=== PATIENT | female | born 1995 | race Caucasian/White ===

== ENCOUNTER 2022-05-31 18:07 | Emergency (ER) | payer MEDICAID, SELFPAY ==
[2022-05-31 18:09] VITALS: BP 126/83; PULSE 117; RESP 18; TEMP 37.9; O2SAT 95; BMI 37.1
--- NOTE | 2022-05-31 18:23 | EX.ED.DYSGE1 ---
HPI History of Present Illness Chief Complaint: General Illness Informant: patient Onset/Context/Timing Onset: Days (5 days) Context: Gradual Onset Timing: Waxes and wanes Current Severity: Moderate Maximum Severity: Moderate Narrative Narrative: Patient post with 5-day history of chills, nausea, body aches. She reports today her temperature has been around 101. She has not taken Tylenol or ibuprofen. She has not actually vomited or had diarrhea. She has not taken a COVID test. She did not get the influenza vaccine. PFSH PFSH Medical History no medical history no medical history Home Medications ondansetron 4 mg disintegrating tablet 4 mg PO Q8H PRN nausea and vomiting #10 tabs 05/31/22 [Rx Last Taken Unknown] Allergy/AdvReac Type Severity Reaction Status Date / Time No Known Allergies Allergy Verified 05/31/22 18:08 Social History Smoking Status: Never smoker ROS ROS ED Constitutional Constitutional ED: Reports chills and fever(s) Eyes Eyes: Denies change in vision or discharge from eye(s) ENT ENT ED: Denies discharge from eye(s), rhinorrhea or sore throat Cardiovascular Cardiovascular: Denies chest pain or palpitations Respiratory/Chest Respiratory/Chest: Reports cough; Denies dyspnea Gastrointestinal Gastrointestinal: Reports nausea; Denies abdominal pain, diarrhea or vomiting Genitourinary Genitourinary ED: Denies dysuria Musculoskeletal Musculoskeletal: Reports myalgias; Denies back pain or extremity pain Integumentary Denies Abrasions or rash Neurologic Neurologic: Reports headache(s); Denies weakness Allergic/Immunologic Allergic/Immunologic ED: Denies lip swelling or urticaria EXAM Physical Exam Const Vital Signs: 05/31/22 18:09 05/31/22 18:35 05/31/22 18:36 Temperature 100.2 F H 100.2 F H Temperature Source Temporal Temporal Pulse Rate 117 H 92 92 Respiratory Rate 18 18 18 Blood Pressure 126/83 H 122/83 H 122/83 H Blood Pressure Mean 97 96 96 Pulse Ox 95 93 93 Oxygen Delivery Method Room Air Room Air Room Air Positive well nourished and well developed General Appearance ED: well developed HEENT Reports normocephalic and head/scalp atraumatic Eyes PERRL and EOMs intact bilaterally Neck supple Chest Wall inspection of chest normal and palpation of chest normal Resp normal respiratory effort and clear to auscultation bilaterally Cardio regular rate and regular rhythm GI normal to inspection, nondistended, normoactive bowel sounds and non-tender Palpation: soft Extremity normal to inspection Neuro oriented x3 and no sensory deficits noted Sensorium / Orientation: alert Motor Exam: strength 5/5 throughout Psych mental status grossly normal Skin no rashes or lesions noted MDM MDM MDM Narrative Medical decision making narrative: Patient given IV fluids along with Toradol and Zofran. Lab work, chest x-ray, COVID/influenza swab ordered. Lab Data Attestation: I reviewed the patient's lab results. Labs: Laboratory Results - last 24 hr 05/31/22 05/31/22 18:30 18:30 WBC 7.6 RBC 5.07 Hgb 14.9 Hct 44.9 MCV 88.6 MCH 29.4 MCHC 33.2 RDW Std Deviation 41.1 RDW Coeff of Kraig 12.7 Plt Count 251 MPV 10.8 Immature Gran % (Auto) 0.400 Neut % (Auto) 67.0 Lymph % (Auto) 18.9 L [place] % (Auto) 12.8 H Eos % (Auto) 0.5 Baso % (Auto) 0.4 Absolute Neuts (auto) 5.1 Absolute Lymphs (auto) 1.44 Nucleated RBC % 0 Sodium 136 Potassium 3.6 Chloride 101 Carbon Dioxide 27.0 Anion Gap 8 BUN 14 Creatinine 1.01 Estim Creat Clear Calc 74.62 Est GFR (MDRD) Af Amer 84 Est GFR (MDRD) Non-Af 69 BUN/Creatinine Ratio 13.9 Glucose 129 H Calcium 8.8 Radiography Chest X-Ray - ED: 1 View, Read by ED Physician, Normal, Heart, Lungs and Mediastinum Diagnostic Testing: Clinical Impression(s) from Imaging Studies Chest X-Ray 05/31/22 18:44 IMPRESSION: No acute findings in the chest. Electronically Signed: Maxx Galvez MD at 19:05 EST , Treatment and Re-Evaluation Narrative: Repeat evaluation patient resting comfortably. Nausea is improved. CBC and chemistry studies unremarkable. Chest x-ray per my interpretation reveals no focal infiltrate. Radiology interpretation is reviewed. Swabs for COVID and influenza returned negative. Test results are discussed with her. I believe she has another virus causing similar symptoms. We discussed supportive care. She will be given a prescription for Zofran. Return instructions given. Discharge Plan Triage Chief Complaint: General Illness ED Provider: Rosy Darby Dx/Rx/DC Orders Clinical Impression: Viral syndrome Instructions: ED Viral Syndrome (Adult) Prescriptions: New ondansetron 4 mg tablet,disintegrating 4 mg PO Q8H PRN (Reason: nausea and vomiting) Qty: 10 0RF Primary Care Provider: Andrew Carey Referrals: Andrew Carey MD [Primary Care Provider] - 1 Week if not improving Disposition Disposition: Home, Self Care
[2022-05-31 18:35] VITALS: BP 122/83; PULSE 92; RESP 18; O2SAT 93
[2022-05-31 18:36] VITALS: BP 122/83; PULSE 92; RESP 18; TEMP 37.9; O2SAT 93
[2022-05-31] MEDS: Ondansetron 4 MG/2 ML Vial IV (18:38)
[2022-05-31] MEDS: 0.9% Normal Saline 1,000 ML 1000 ML IV (18:38)
[2022-05-31] MEDS: Ketorolac 30 MG/ML Syringe IV (18:38)
[2022-05-31 18:43] LABS: Absolute Lymphocyte Count 1.44 X10^3/uL (0.83-4.51); Absolute Neutrophil Count 5.1 X10^3/uL (2.0-7.7); Basophil# 0.03 X10^3/uL; Basophil% 0.4 % (0-1); Eosinophil# 0.04 X10^3/uL; Eosinophils% 0.5 % (0-5); Hematocrit 44.9 % (37-47); Hemoglobin 14.9 g/dL (12.0-15.0); Lymphocyte # 1.44 X10^3/ul (0.83-4.51); Lymphocyte % 18.9 % (19-41); Mean Corp Hgb Conc 33.2 g/dL (32-36); Mean Corpuscular Hgb 29.4 pg (27.0-32.0); Mean Corpuscular Volume 88.6 fL (81-99); Mean Platelet Vol. 10.8 fl (6.2-12.0); Monocyte# 0.97 X10^3/uL; Monocyte% 12.8 % (0-10); NRBC Flagged by Analyzer 0 % (0-5); Neutrophil # 5.09 X10^3/uL (2.7-7.7); Platelet Count 251 K/mm3 (150-450); RBC Distribution Width CV 12.7 % (11.6-14.6); RBC Distribution Width SD 41.1 fl (35.1-43.9); Red Blood Count 5.07 M/mm3 (4.2-5.4); White Blood Count 7.6 K/mm3 (4.4-11.0)
--- NOTE | 2022-05-31 18:44 | RAD_ITS ---
EXAM: XR CHEST, 1 VIEW CLINICAL INDICATION: fever, cough TECHNIQUE: Frontal view of the chest. This report was created using [employer] report generation technology. COMPARISON: None. FINDINGS: LUNGS AND PLEURAL SPACES: Mild subsegmental atelectasis at the lung bases. No pneumothorax. No effusion. HEART: Unremarkable. Cardiac silhouette not enlarged. MEDIASTINUM: Central airways and mediastinal contour are unremarkable. BONES/JOINTS: Unremarkable. SOFT TISSUES: Unremarkable. RAD/Chest 1 View (Portable) IMPRESSION: No acute findings in the chest. Electronically Signed: Maxx Galvez MD at 19:05 EST ,
[2022-05-31 18:45] LABS: POSITIVE COUNT NO; POSITIVE DIFFERENTIAL NO; POSITIVE MORPHOLOGY NO
[2022-05-31 18:57] LABS: Anion Gap 8 (5-15); BUN 14 mg/dL (7-18); BUN/Creat Ratio 13.9 RATIO (10-20); Calcium,Total 8.8 mg/dL (8.5-10.1); Chloride 101 mmol/L (98-107); Creatinine, Serum 1.01 mg/dL (0.55-1.02); EST Glomerular Filtration Rate 69 mL/min (>60); Est Glom Filt Rate - Afr Amer 84 mL/min (>60); Estimated Creatinine Clearance 74.62 ml/min; Glucose 129 mg/dL (74-106); Potassium 3.6 mmol/L (3.5-5.1); Sodium Level 136 mmol/L (136-145)
[2022-05-31 19:26] VITALS: BP 117/70; PULSE 78; O2SAT 100
== END 2022-05-31 19:29 | disposition home or self-care (01) ==
PROVIDERS: Emergency Provider Emergency Medicine; PCP Family Medicine; Visit Provider Emergency Medicine
DX: B34.9 Viral infection, unspecified (principal)
CPT/HCPCS: 71045; 80048; 85025; 87428; 96361; 96374; 96375; 99282; J7030; J2405